=== PATIENT | male | born 1985 | race Caucasian/White ===

== ENCOUNTER 2016-10-08 14:38 | Emergency (ER) | payer BC ==
[2016-10-08 15:00] LABS: URINE BILIRUBIN NEGATIVE (NEGATIVE); URINE BLOOD TRACE (NEGATIVE); URINE KETONE 1+ (NEGATIVE); URINE LEUKOCYTE ESTERASE NEGATIVE (NEGATIVE); URINE NITRATE NEGATIVE (NEGATIVE); URINE PROTEIN 2+ (NEGATIVE); UROBILINOGEN NORMAL mg/dL (<1.0)
[2016-10-08 15:07] LABS: URINE GLUCOSE (UA) 1000 mg/dL (NORMAL)
[2016-10-08 15:47] LABS: URINE RBC 0-5 /[HPF] (0-2)
[2016-10-08 15:48] LABS: URINE BACTERIA TRACE (NONE SEEN); URINE WBC RARE /[HPF] (0-3); URINE YEAST FEW (NONE SEEN)
[2016-10-08 15:58] LABS: ALBUMIN 3.8 gm/dL (3.4-5.0); ALKALINE PHOSPHATASE 80 U/L (50-136); BILIRUBIN,TOTAL 0.41 mg/dL (0.0-1.0); BLOOD UREA NITROGEN 10 mg/dL (7-18); CARBON DIOXIDE 19 mmol/L (21-32); SODIUM 126 mmol/L (136-145); TOTAL PROTEIN 6.6 gm/dL (6.4-8.2)
[2016-10-08 16:01] LABS: BASO # 0.1 10_X3_uL (0.0-0.1); BASO % 0.4 % (0.2-1.2); EOS # 0.1 10_X3_uL (0.0-0.5); EOS % 0.6 % (0.8-7.0); GRAN # 8.4 10_X3_uL (1.8-5.4); GRAN % 70.3 % (34.0-67.9); LYMPH # 2.2 10_X3_uL (1.3-3.6); LYMPH % 18.3 % (21.8-53.1); MEAN PLATELET VOLUME 11.3 fl (7.5-11.5); MONO # 1.2 10_X3_uL (0.3-0.8); MONO % 10.4 % (5.3-12.2); PLATELET COUNT 255 x10_3/uL (163-337); RED CELL DISTRIBUTION WIDTH 13.5 % (11.6-14.4); WHITE BLOOD COUNT 11.9 x10_3/uL (4.2-9.1)
[2016-10-08 16:02] LABS: HEMATOCRIT 42.3 % (40-51); MEAN CORPUSCULAR HEMOGLOBIN 30.8 pg (27.0-33.0); MEAN CORPUSCULAR HGB CONC 37.8 g/dL (32.0-36.0); MEAN CORPUSCULAR VOLUME 81.5 fL (79-92); RED BLOOD COUNT 5.19 x10_6/uL (4.6-6.1)
[2016-10-08 16:09] LABS: AST/SGOT 61 U/L (6.66-35.34)
[2016-10-08 16:11] LABS: GLUCOSE,RANDOM 371 mg/dL (70-99); POTASSIUM 5.3 mmol/L (3.5-5.1)
[2016-10-10 20:45] LABS: RESULT Creatinine (())
[2016-10-10 22:50] LABS: RESULT ALT (())
== END 2016-10-08 18:43 | disposition home or self-care (01) ==
LOC: ER 14:38
PROVIDERS: Internal Medicine
DX: R10.9 Unspecified abdominal pain (principal); M54.9 Dorsalgia, unspecified; E11.65 Type 2 diabetes mellitus with hyperglycemia; N28.1 Cyst of kidney, acquired; R11.2 Nausea with vomiting, unspecified; R30.0 Dysuria; I10 Essential (primary) hypertension; F17.220 Nicotine dependence, chewing tobacco, uncomplicated; Z79.899 Other long term (current) drug therapy
CPT/HCPCS: 36415; 74150; 80053; 81001; 82009; 82962; 85025; 96361; 96374; 96375; 99070; 99284-25

== ENCOUNTER 2016-10-13 21:18 | Emergency (ER) | payer BC ==
[2016-10-13 21:39] LABS: URINE BILIRUBIN NEGATIVE (NEGATIVE); URINE BLOOD NEGATIVE (NEGATIVE); URINE KETONE NEGATIVE (NEGATIVE); URINE LEUKOCYTE ESTERASE NEGATIVE (NEGATIVE); URINE NITRATE NEGATIVE (NEGATIVE); URINE PROTEIN NEGATIVE (NEGATIVE); UROBILINOGEN NORMAL mg/dL (<1.0)
[2016-10-13 21:41] LABS: URINE GLUCOSE (UA) 1000 mg/dL (NORMAL)
[2016-10-13 21:58] LABS: BASO # 0.1 10_X3_uL (0.0-0.1); BASO % 0.5 % (0.2-1.2); EOS # 0.1 10_X3_uL (0.0-0.5); EOS % 1.2 % (0.8-7.0); GRAN # 7.4 10_X3_uL (1.8-5.4); GRAN % 70.1 % (34.0-67.9); HEMATOCRIT 38.6 % (40-51); HEMOGLOBIN 13.6 g/dL (13.7-17.5); LYMPH # 1.9 10_X3_uL (1.3-3.6); LYMPH % 18.2 % (21.8-53.1); MEAN CORPUSCULAR HEMOGLOBIN 29.8 pg (27.0-33.0); MEAN CORPUSCULAR HGB CONC 35.2 g/dL (32.0-36.0); MEAN CORPUSCULAR VOLUME 84.6 fL (79-92); MONO # 1.1 10_X3_uL (0.3-0.8); PLATELET COUNT 271 x10_3/uL (163-337); RED BLOOD COUNT 4.56 x10_6/uL (4.6-6.1); RED CELL DISTRIBUTION WIDTH 12.9 % (11.6-14.4); WHITE BLOOD COUNT 10.5 x10_3/uL (4.2-9.1)
[2016-10-13 22:11] LABS: ALBUMIN 3.2 gm/dL (3.4-5.0); ALKALINE PHOSPHATASE 66 U/L (50-136); ALT/SGPT 24 U/L (7.53-40.17); AMYLASE 27 U/L (15.62-74.58); AST/SGOT 25 U/L (6.66-35.34); BILIRUBIN,TOTAL 0.38 mg/dL (0.0-1.0); BLOOD UREA NITROGEN 12 mg/dL (7-18); CARBON DIOXIDE 26 mmol/L (21-32); CREATININE 0.6 mg/dL (0.6-1.3); GLUCOSE,RANDOM 344 mg/dL (70-99); LIPASE 30 U/L (6.75-60.75); POTASSIUM 3.1 mmol/L (3.5-5.1); SODIUM 133 mmol/L (136-145)
[2016-10-14 15:59] LABS: CALCIUM 9.1 mg/dL (8.7-10.7)
== END 2016-10-15 00:28 | disposition home or self-care (01) ==
LOC: ER 21:18
PROVIDERS: General Practice
DX: K29.80 Duodenitis without bleeding (principal); K57.32 Diverticulitis of large intestine without perforation or abscess without bleeding; N28.1 Cyst of kidney, acquired; E11.65 Type 2 diabetes mellitus with hyperglycemia; R10.30 Lower abdominal pain, unspecified; E66.01 Morbid (severe) obesity due to excess calories; I10 Essential (primary) hypertension; F17.220 Nicotine dependence, chewing tobacco, uncomplicated; Z79.4 Long term (current) use of insulin; Z79.899 Other long term (current) drug therapy
CPT/HCPCS: 36415; 80053; 81003; 82150; 82962; 83690; 85025; 99070; 99284-25; J7040; Q9967